=== PATIENT | female | born 2000 | race Two or more races ===

== ENCOUNTER 2020-06-03 11:54 | Emergency (ER) | payer BC, OTHER ==
[~2020-06-03] VITALS: Ht 165.1 cm; Wt 79.4 kg
[2020-06-03 12:13] VITALS: BP 125/88
--- NOTE | 2020-06-03 12:14 | NUR ---
ED Nurse Note: Patient walked into ED c/o left low back pain that radiates to left leg when bending over. Currently pain is 1/10, 8/10 when bending over. No recent falls trauma, denies pain with urination, fever. Patient AxO x 4, urine specimen sent to lab.
[2020-06-03] MEDS ORDERED: ROBAXIN-750750 MG PO (12:17)
[2020-06-03] MEDS ORDERED: NAPROXEN500 M1 ORAL (12:17)
[2020-06-03] MEDS ORDERED: NEURONTIN100 MG ORAL (12:17)
--- NOTE | 2020-06-03 12:17 | Emergency Room Report ---
History of Present Illness General Chief Complaint: Back Pain-No Injury Source: Patient Present Illness HPI 19-year-old female with past medical history of asthma presents with atraumatic left thigh pain radiating down to the left foot x3 days. Patient denies history of trauma, falls, hematuria, dysuria, pelvic pain, vaginal bleeding, vaginal discharge, dysuria, flank pain, abdominal pain, chest pain, fever, cough or shortness of breath. 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 She denies any focal weakness, urinary retention, bowel or bladder incontinence , chills, or history of IV drug use. The patient's symptoms were gradual onset, severity was moderate, duration since 3 days. Quality: Aching Past medical history: Asthma Past surgical history: Denies Smoking: Denies Alcohol use: Denies Drug use: Denies Review of systems: CONST: No fevers or chills, No night sweats PULMONARY: No productive cough, No shortness of breath CARDIAC: No chest pain, No palpitations GI: No vomiting, No diarrhea , No melena_or_BRBPR : No dysuria, No hematuria, No discharge NEURO: No new_focal_weakness_or_numbness, No confusion, No vision changes 14 point Review of Systems is otherwise negative except per HPI Physical Exam: GENERAL: Awake_alert_ nontoxic, no acute distress Spo2 98% on RA -normal EYES: Extraocular muscles are intact. Conjunctivae clear. Lids without swelling ENT: External nose and ear normal_in_appearance. Oropharynx clear. Head_ atraumatic, Moist_oral_mucosa NECK: No JVD. No meningismus. No thyromegaly. Supple. Trachea midline RESP: Normal respiratory effort. Symmetric rise. No stridor. Clear_to_ auscultation_No_rales_No_wheezes CARDIAC: Regular rate and regular rhytm. No_significant pedal edema. ABDOMEN: Soft. Nondistended. Nontender_No_rebound_or_guarding. MSK: Normal muscle tone, without rigidity. Extremities without asymmetric deformity or swelling. Positive straight leg raise test on the left. Positive cross straight leg raise test on the right. Sensation intact to light touch. Motor strength plus 4 out of 4 bilateral lower extremity. SKIN: Warm and dry. No visible cyanosis or pallor NEUROLOGIC: Alert, oriented x3. Motor_and_sensation_grossly_intact. No truncal ataxia. Gait_normal Psych: Normal mood and affect, normal judgment and insight - COORDINATION OF CARE Case was discussed with: Patient Medical Decision Making/Plan: Differential diagnosis includes musculoskeletal pain, muscle spasm / sprain, neuropathy (lateral femoral cutaneous), sciatica DOUBT vertebral fracture, spinal epidural abscess, spinal epidural hematoma, pyelonephritis, kidney stone, AAA, among others. Vitals are unremarkable. On exam, pulses are equal and symmetric bilaterally. No focal neurologic deficits noted. No midline spinal step offs or deformities appreciated. The patient has no significant red flags on history or exam. The patient has no significant risk factors for AAA (abdominal aortic aneurysm) such as age over 50 with history of hypertension, connective tissue disorder, or 1st degree relative with AAA. In addition, the patient has normal dorsalis pedis pulses, and no pulsatile mass felt on exam. The patients profile was overall low risk for AAA and definitive workup was not pursued. Patient has no history of malignancy, active or distant history. Patient has no B symptoms: no unintentional weight loss, night sweats, or fevers. No longstanding steroid or other immunosuppressant usage. No mechanism for significant trauma. Patient has no vertebral deformity or midline tenderness and has a normal gait. Patient has no significant risk factors for spinal epidural emergency such as fever, IVDU, HIV, or anticoagulant use. Patient is neurologically intact without any lower extremity weakness / numbness, saddle anesthesia, urinary retention or fecal incontinence. No evidence of any emergent process of the spinal cord or cauda equina at this time. The patients symptoms appear consistent with a musculoskeletal origin, suspect neuropathy 2/2 sciatics vs lateral femoral cutaneous impingement. Recommend stretching, avoidance fo prolonged sitting, and hydration. She will be sent home with muscle relaxant and NSAID. I have instructed her not to drive while taking muscle relaxants secondary to risk of sedation The patient was counseled that they need to see their primary medical doctor in the next 1-2 days for reevaluation and further treatment, and to return immediately if symptoms change or worsen. Allergies: Coded Allergies: No Known Allergies (Unverified , 06/03/20) COVID-19 Screening Contact w/high risk pt: No Experienced COVID-19 symptoms?: No COVID-19 Testing performed SPEECH AND HEARING CLINIC DIRECTOR: No Patient History Last Menstrual Period: 05/02/2020 Nursing Documentation-PMH Hx Asthma: Yes Physical Exam Vital Signs Date Time Temp Pulse Resp B/P (MAP) Pulse Ox O2 Delivery O2 Flow Rate FiO2 06/03/20 11:56 97.9 85 18 125/88 (100) 97 Room Air Sp02 EP Interpretation: reviewed, normal Medical Decision Making Diagnostic Impression: Primary Impression: Lumbosacral radiculopathy Additional Impression: Back pain Last Vital Signs Date Time Temp Pulse Resp B/P (MAP) Pulse Ox O2 Delivery O2 Flow Rate FiO2 06/03/20 11:56 97.9 85 18 125/88 (100) 97 Room Air Disposition: HOME, SELF-CARE Admit Decision Time: 12:16 Condition: Stable Scripts Gabapentin* (NEURONTIN*) 100 Mg Capsule 100 MG ORAL THREE TIMES A DAY, #15 CAP 0 Refills Prov: Rhina Booth D.O. 06/03/20 Methocarbamol* (ROBAXIN-750*) 750 Mg Tablet 750 MG PO TID, #21 TAB 0 Refills Prov: Rhina Booth D.O. 06/03/20 Naproxen* (NAPROXEN*) 500 Mg Tablet.dr 500 MG ORAL TWICE A DAY for 14 Days, #28 TAB Prov: Rhina Booth D.O. 06/03/20 Patient Instructions: Sciatica Additional Instructions: Instructions for patient/stonemason: Follow up with your physician in 1-[address] heavy machinery while taking Robaxin as it is a sedating medication. Follow-up with your doctor sooner if your condition requires a more timely clinical reevaluation. Return to the emergency department immediately if you feel that your condition is worsening or if you have any new or concerning symptoms. Review your discharge instructions and take any prescriptions given as instructed. Rhina Booth D.O. Jun 03, 2020 12:17
[2020-06-03] MEDS ORDERED: Ketorolac 30mg Inj IM ONE (12:30)
--- NOTE | 2020-06-03 12:35 | NUR ---
ER DISCHARGE NOTE: Patient is cleared to be discharged per ERMD, pt is aox4, on room air, with stable vital signs. pt was given dc and prescription instructions, pt was able to verbalize understanding, ID band removed. pt is able to ambulate with steady gait. pt took all belongings.
[2020-06-03 12:37] VITALS: BP 125/88
== END 2020-06-03 12:35 | disposition home or self-care (01) ==
LOC: EMR 12:30
DX: M54.17 Radiculopathy, lumbosacral region (principal); M54.5 Low back pain; J45.909 Unspecified asthma, uncomplicated
CPT/HCPCS: 81025; 96372; 99283; J1100; J1885

== ENCOUNTER 2020-07-01 23:48 | Emergency (ER) | payer BC, OTHER ==
[~2020-07-01] VITALS: Ht 165.1 cm; Wt 77.1 kg
[~2020-07-01 23:48] MED LIST: NAPROXEN500 M1 ORAL; NEURONTIN100 MG ORAL; ROBAXIN-750750 MG PO
[2020-07-02 00:15] VITALS: BP 115/76
--- NOTE | 2020-07-02 00:27 | Emergency Room Report ---
History of Present Illness General Chief Complaint: Abdominal Pain Source: Patient Present Illness HPI Patient presents with 2 hours of right upper quadrant pain rating to her back. She never had this before. The pain was severe at 8/10 initially. She took some simethicone and the pain is now down to 2-3/10. Is been constant but improved. She denies fevers or chills. There is no nausea, vomiting or diar gorge. Her last menstruation was 2 months ago but she says her menstruation is irregular. She denies dysuria. When she last moved her bowels was day before yesterday. It was normal at that time. She usually moves her bowels daily and so this is a little bit unusual for her. No fevers, chills, sore throat, chest pain, palpitations, shortness of breath, joint pain, rashes, depression, anxiety, visual changes, dizziness, headache. Allergies: Coded Allergies: No Known Allergies (Unverified , 06/03/20) COVID-19 Screening Contact w/high risk pt: No Experienced COVID-19 symptoms?: No COVID-19 Testing performed FINANCIAL DATA ANALYST: No Patient History Past Medical History: see triage record Social History Narrative Student studying biology Last Menstrual Period: April 2020 Now: No : 0 Para: 0 Reviewed Nursing Documentation: PMH: Agreed; PSxH: Agreed Nursing Documentation-PMH Hx Asthma: Yes Review of Systems All Other Systems: negative except mentioned in HPI Physical Exam Vital Signs Date Time Temp Pulse Resp B/P (MAP) Pulse Ox O2 Delivery O2 Flow Rate FiO2 07/01/20 23:51 98.4 83 18 115/76 (89) 96 Room Air Sp02 EP Interpretation: reviewed, normal General Appearance: well appearing, no apparent distress, GCS 15 Head: normocephalic Eyes: bilateral eye normal inspection, bilateral eye PERRL, bilateral eye EOMI ENT: moist mucus membranes Neck: supple Respiratory: lungs clear, normal breath sounds Cardiovascular #1: regular rate, rhythm Cardiovascular #2: 2+ radial (R) Gastrointestinal: normal inspection, normal bowel sounds, no mass, non- distended, no guarding, no rebound, tenderness - Reported right upper quadrant Genitourinary: no CVA tenderness Musculoskeletal: back normal, normal range of motion, gait/station normal Neurologic: alert, oriented x3, grossly normal Psychiatric: mood/affect normal Skin: no rash, warm/dry Medical Decision Making Diagnostic Impression: Primary Impression: Biliary colic ER Course Patient presents with right upper quadrant pain of 2 hours duration. Differential includes peptic ulcer disease, pancreatitis, gallbladder disease, gastritis, diverticulitis amongst others. Patient evaluated with labs and ultrasound. Patient given IV hydration. She was offered Tylenol but declined. We need to exclude . Labs significant for mild leukocytosis without left shift. CMP normal. Urinalysis clear. Ultrasound with multiple small gallstones without obstruction or gallbladder wall thickening. Possible hemangioma. Patient continues to improve and pain is resolved. Discussed findings with patient and most likely etiology of the pain. Also discussed ultrasound findings. Discussed the need for outpatient follow-up. Patient is stable for outpatient observation and treatment. Laboratory Tests Test 07/02/20 00:09 07/02/20 00:15 Urine Color Pale yellow Urine Appearance Clear Urine pH 6 (4.5-8.0) Urine Specific [place] 1.010 (1.005-1.035) Urine Protein Negative (NEGATIVE) Urine Glucose (UA) Negative (NEGATIVE) Urine Ketones Negative (NEGATIVE) Urine Blood Negative (NEGATIVE) Urine Nitrite Negative (NEGATIVE) Urine Bilirubin Negative (NEGATIVE) Urine Urobilinogen Normal MG/DL (0.0-1.0) Urine Leukocyte Esterase Negative (NEGATIVE) Urine HCG, Qualitative Negative (NEGATIVE) White Blood Count 13.1 K/UL (4.8-10.8) H Red Blood Count 4.84 M/UL (4.20-5.40) Hemoglobin 14.3 G/DL (12.0-16.0) Hematocrit 42.6 % (37.0-47.0) Mean Corpuscular Volume 88 FL (80-99) Mean Corpuscular Hemoglobin 29.5 PG (27.0-31.0) Mean Corpuscular Hemoglobin Concent 33.5 G/DL (32.0-36.0) Red Cell Distribution Width 12.8 % (11.6-14.8) Platelet Count 334 K/UL (150-450) Mean Platelet Volume 6.3 FL (6.5-10.1) L Neutrophils (%) (Auto) 56.1 % (45.0-75.0) Lymphocytes (%) (Auto) 32.0 % (20.0-45.0) Monocytes (%) (Auto) 7.6 % (1.0-10.0) Eosinophils (%) (Auto) 2.6 % (0.0-3.0) Basophils (%) (Auto) 1.6 % (0.0-2.0) Prothrombin Time 11.5 SEC (9.30-11.50) Prothrombin Time INR 1.0 (0.9-1.1) Activated Partial Thromboplast Time 32 SEC (23-33) Sodium Level 137 MMOL/L (136-145) Potassium Level 3.6 MMOL/L (3.5-5.1) Chloride Level 102 MMOL/L (98-107) Carbon Dioxide Level 25 MMOL/L (21-32) Anion Gap 10 mmol/L (5-15) Blood Urea Nitrogen 9 mg/dL (7-18) Creatinine 0.8 MG/DL (0.55-1.30) Estimated Glomerular Filtration Rate > 60 mL/min (>60) Glucose Level 119 MG/DL (74-106) H Calcium Level 9.6 MG/DL (8.5-10.1) Total Bilirubin 0.5 MG/DL (0.2-1.0) Aspartate Amino Transferase (AST) 35 U/L (15-37) Alanine Aminotransferase (ALT) 98 U/L (12-78) H Alkaline Phosphatase 86 U/L (46-116) Total Protein 7.4 G/DL (6.4-8.2) Albumin 4.0 G/DL (3.4-5.0) Globulin 3.4 g/dL Albumin/Globulin Ratio 1.2 (1.0-2.7) Lipase 127 U/L (73-393) CT/MRI/US Diagnostic Results CT/MRI/US Diagnostic Results : Imaging Test Ordered: US Impression 1. Hepatic steatosis with a 4.2 cm echogenic lesion within the left hepatic lobe which is nonspecific but may represent a hepatic hemangioma. 2. Gallstones. No wall thickening or pericholecystic fluid. Last Vital Signs Date Time Temp Pulse Resp B/P (MAP) Pulse Ox O2 Delivery O2 Flow Rate FiO2 07/02/20 02:56 98.4 83 18 115/76 96 Room Air Status: improved Disposition: HOME, SELF-CARE Condition: Improved Scripts Acetaminophen With Codeine (T#3) (TYLENOL #3 TAB*) Y Tab 1 TAB ORAL Q6HR PRN for For Pain, #10 TAB Prov: Logan Ambrose MD 07/02/20 Referrals: NON PHYSICIAN (PCP) Logan Ambrose MD Jul 02, 2020 00:27
[2020-07-02 00:50] LABS: APPEARANCE,URINE CLEAR; BILIRUBIN, URINE NEGATIVE (NEGATIVE); COLOR,URINE PALE YELLOW; GLUCOSE, URINE (UA) NEGATIVE (NEGATIVE); KETONES,URINE NEGATIVE (NEGATIVE); LEUKOCYTE ESTERASE ,URINE NEGATIVE (NEGATIVE); NITRITE,URINE NEGATIVE (NEGATIVE); PH,URINE 6 (4.5-8.0); PROTEIN,URINE NEGATIVE (NEGATIVE); UROBILINOGEN,URINE NORMAL MG/DL (0.0-1.0)
[2020-07-02 00:56] LABS: ANION GAP 10 mmol/L (5-15); BLOOD UREA NITROGEN 9 mg/dL (7-18); CALCIUM 9.6 MG/DL (8.5-10.1); CARBON DIOXIDE 25 MMOL/L (21-32); CHLORIDE 102 MMOL/L (98-107); CREATININE 0.8 MG/DL (0.55-1.30); POTASSIUM 3.6 MMOL/L (3.5-5.1); SODIUM 137 MMOL/L (136-145)
[2020-07-02 01:00] LABS: ALANINE AMINOTRANSFERASE 98 U/L (12-78); ALBUMIN/GLOBULIN RATIO 1.2 (1.0-2.7); ALKALINE PHOSPHATASE 86 U/L (46-116); ASPARTATE AMINO TRANSFERASE 35 U/L (15-37); BILIRUBIN,TOTAL 0.5 MG/DL (0.2-1.0)
[2020-07-02 01:05] LABS: BASOPHILS % (AUTO) 1.6 % (0.0-2.0); EOSINOPHILS % (AUTO) 2.6 % (0.0-3.0); HEMATOCRIT 42.6 % (37.0-47.0); HEMOGLOBIN 14.3 G/DL (12.0-16.0); MEAN CORPUSCULAR VOLUME 88 FL (80-99); MONOCYTES % (AUTO) 7.6 % (1.0-10.0); NEUTROPHILS % (AUTO) 56.1 % (45.0-75.0); PLATELET COUNT 334 K/UL (150-450); RED BLOOD COUNT 4.84 M/UL (4.20-5.40); RED CELL DISTRIBUTION WIDTH 12.8 % (11.6-14.8); WHITE BLOOD COUNT 13.1 K/UL (4.8-10.8)
[2020-07-02 01:30] VITALS: BP 122/81
--- NOTE | 2020-07-02 02:46 | Diagnostic Imaging Report ---
EXAM: US Abdomen Complete CLINICAL HISTORY: ABD PAIN TECHNIQUE: Real-time ultrasound of the abdomen with image documentation. COMPARISON: No relevant prior studies available. FINDINGS: Liver: 4.2 cm echogenic lesion within the left hepatic lobe which is nonspecific but may represent hepatic hemangioma. Liver measured to 16.5 cm with increased echogenicity. Gallbladder: Gallstones. No wall thickening or pericholecystic fluid. Common bile duct: Common bile duct measured at 3.5 mm. No stones. No dilation. Pancreas: Unremarkable as visualized. Kidneys: Right kidney measures up to 12.4 cm. Left kidney measures up to 12.2 cm. No stones. No hydronephrosis. Spleen: Unremarkable. No splenomegaly. Aorta: Unremarkable. No aneurysm. Inferior vena cava: Unremarkable. IMPRESSION: 1. Hepatic steatosis with a 4.2 cm echogenic lesion within the left hepatic lobe which is nonspecific but may represent a hepatic hemangioma. 2. Gallstones. No wall thickening or pericholecystic fluid.
[2020-07-02] MEDS ORDERED: ACETAMINOPHEN-1 EAC1 ORAL (02:49)
[2020-07-02 02:56] VITALS: BP 115/76
== END 2020-07-02 02:57 | disposition home or self-care (01) ==
LOC: EMR 07-02 00:15
DX: K80.50 Calculus of bile duct without cholangitis or cholecystitis without obstruction (principal); J45.909 Unspecified asthma, uncomplicated
CPT/HCPCS: 36415; 76700; 80053; 81003; 81025; 83690; 85025; 85610; 85730; 99284